=== PATIENT | male | born 1955 | race Caucasian/White ===

== ENCOUNTER 2019-05-12 01:10 | Inpatient (IN) | payer MEDICARE ==
[~2019-05-12] VITALS: Ht 175.3 cm; Wt 88.6 kg
--- NOTE | 2019-05-12 01:31 | NUR ---
EMS REPORT THAT PTS IN IN ROUTE TO OUR ER.
--- NOTE | 2019-05-12 02:39 | NUR ---
PT EVALUATED BY TELE NEURO MD. KACI GONSALVES ASSISTED WITH ASSESSMENT AND REPORT
[2019-05-12] MEDS ORDERED: METO100T14 PO (03:10)
[2019-05-12] MEDS ORDERED: WARF-55 PO (03:10)
[2019-05-12] MEDS ORDERED: potassium Cl 20 mEq SR tablet PO PRN ×2 (03:15)
[2019-05-12] MEDS ORDERED: magnesium 4gm in 100ml NS 100 ML IV PRN (03:15)
[2019-05-12] MEDS ORDERED: magnesium Cl slow-release 64mg tablet PO PRN (03:15)
[2019-05-12] MEDS ORDERED: magnesium hydroxide 30ml (MOM) UD suspension PO PRN (03:15)
[2019-05-12] MEDS ORDERED: HYDROcodone/acetaminophen 5mg/325mg tablet PO PRN (03:15)
[2019-05-12] MEDS ORDERED: ondansetron/PF 4mg/2ml inj IV PRN (03:15)
[2019-05-12] MEDS ORDERED: magnesium 2GM in 50ml NS 50 ML IV PRN (03:15)
[2019-05-12] MEDS ORDERED: acetaminophen 325mg tablet PO PRN (03:15)
[2019-05-12] MEDS ORDERED: morphine 2 MG/ML inj. syringe IV PRN ×2 (03:15)
[2019-05-12] MEDS ORDERED: potassium CL 10mEq/100ml bag 100 ML IV PRN ×2 (03:15)
[2019-05-12] MEDS ORDERED: mag hydrox/Alum hydrox/simeth 30ml oral suspension PO PRN (03:15)
[2019-05-12] MEDS ORDERED: thiamine inj. 100 MG in normal saline 100ml IV soln 100 ML IV ONE (04:35)
[2019-05-12] MEDS ORDERED: LORazepam 2 mg/ml vial IV PRN (04:35)
[2019-05-12] MEDS ORDERED: MVI, adult No.4 with vit. K 10 ML in dextrose 5% water 500ml 500 ML IV ONE ×2 (05:25)
[2019-05-12] MEDS ORDERED: thiamine inj. 100 MG, folic acid inj. 2 MG in normal saline 100ml IV soln 100 ML IV ONE (05:30)
[2019-05-12 06:16] LABS: BASOPHILS % (AUTO) 0.3 % (0-1); EOSINOPHILS % (AUTO) 0.3 % (0-6); HEMOGLOBIN 16.2 g/dl (14.0-17.9); LYMPHOCYTES # (AUTO) 1.7 X10'3 (1.1-4.8); LYMPHOCYTES % (AUTO) 15.7 % (21-51); MEAN CORPUSCULAR HGB CONC 33.8 g/dL (33.0-36.5); MEAN CORPUSCULAR VOLUME 91.5 FL (78-98); MEAN PLATELET VOLUME 8.9 FL (7.4-10.4); MONOCYTES % (AUTO) 9.5 % (2-12); NEUTROPHILS # (AUTO) 8.1 X10'3 (1.8-7.7); NEUTROPHILS % (AUTO) 74.2 % (42-75); PLATELET COUNT 158 X10'3 (140-440); RED BLOOD COUNT 5.24 X10'6 (4.70-6.10); RED CELL DISTRIBUTION WIDTH 13.3 % (11.5-14.5)
[2019-05-12 06:28] LABS: ALBUMIN 3.8 G/DL (3.4-5.0); ANION GAP 11 (8-16); BLOOD UREA NITROGEN 14 MG/DL (7-18); BUN/CREATININE RATIO 10.8 (5.4-32.0); CALCIUM 8.8 MG/DL (8.5-10.1); CHLORIDE 109 MMOL/L (99-107); GLUCOSE 96 MG/DL (70-104); POTASSIUM 3.7 MMOL/L (3.5-5.1); SODIUM 145 MMOL/L (135-145); TOTAL CARBON DIOXIDE 24.6 MMOL/L (24-32); eGFR 55 ML/MIN
[2019-05-12] MEDS: K and/or MAG REPLACEMENT MC SCH (07:27)
[2019-05-12] MEDS: enoxaparin 40mg/0.4ml syringe SQ SCH (07:43)
[2019-05-12] MEDS: folic acid 1mg tablet PO SCH (07:44)
[2019-05-12] MEDS: thiamine 100mg tablet PO SCH (07:44)
[2019-05-12] MEDS: metoprolol tartrate 50mg tablet PO SCH (07:45)
[2019-05-12] MEDS: warfarin 5mg tablet PO SCH (07:53)
[2019-05-12] MEDS: levetiracetam 250mg tablet PO SCH ×2 (08:09→20:36)
[2019-05-12 09:10] LABS: HIV ANTIBODY 1&2 RAPID NON-REACTIVE (Neg)
[2019-05-12 10:00] VITALS: BP 159/90
[2019-05-12] MEDS: LORazepam 1 MG tablet PO PRN ×2 (12:10→20:36)
--- NOTE | 2019-05-12 16:04 | NUR ---
Page to Dr. Up regarding positive MRI and family wanting to see her.
[2019-05-12 18:00] VITALS: BP 133/91
--- NOTE | 2019-05-12 18:30 | NUR ---
Patient in room [facility]TH[facility] 4012. I have received report from BRINA Diaz and had the opportunity to ask questions and assume patient care.
[2019-05-13] VITALS (7 sets, daily range): BP systolic 130–169; BP diastolic 76–95
--- NOTE | 2019-05-13 06:15 | NUR ---
Problems reprioritized. Patient report given, questions answered & plan of care reviewed with BRINA Diaz and BRINA Oconnell student.
[2019-05-13 07:04] LABS: RPR Non Reactive (Non Reactive)
[2019-05-13 07:18] LABS: BASOPHILS % (AUTO) 0.5 % (0-1); EOSINOPHILS # (AUTO) 0.1 X10'3 (0-0.9); EOSINOPHILS % (AUTO) 1.5 % (0-6); HEMATOCRIT 45.6 % (42.0-52.0); HEMOGLOBIN 15.3 g/dl (14.0-17.9); LYMPHOCYTES # (AUTO) 1.4 X10'3 (1.1-4.8); LYMPHOCYTES % (AUTO) 22.6 % (21-51); MEAN CORPUSCULAR HEMOGLOBIN 31.2 PG (27.0-31.0); MEAN CORPUSCULAR HGB CONC 33.6 g/dL (33.0-36.5); MEAN CORPUSCULAR VOLUME 92.6 FL (78-98); MEAN PLATELET VOLUME 9.1 FL (7.4-10.4); MONOCYTES # (AUTO) 0.7 X10'3 (0-0.9); MONOCYTES % (AUTO) 11.3 % (2-12); NEUTROPHILS # (AUTO) 4.1 X10'3 (1.8-7.7); NEUTROPHILS % (AUTO) 64.1 % (42-75); PLATELET COUNT 150 X10'3 (140-440); RED BLOOD COUNT 4.93 X10'6 (4.70-6.10); RED CELL DISTRIBUTION WIDTH 13.5 % (11.5-14.5); WHITE BLOOD COUNT 6.4 X10'3 (4.5-11.0)
[2019-05-13 07:34] LABS: ALBUMIN 3.3 G/DL (3.4-5.0); ANION GAP 9 (8-16); BLOOD UREA NITROGEN 14 MG/DL (7-18); BUN/CREATININE RATIO 11.3 (5.4-32.0); CALCIUM 8.6 MG/DL (8.5-10.1); CHLORIDE 108 MMOL/L (99-107); CREATININE 1.24 MG/DL (0.60-1.10); GLUCOSE 86 MG/DL (70-104); MAGNESIUM 1.8 MG/DL (1.5-2.4); SODIUM 143 MMOL/L (135-145); TOTAL CARBON DIOXIDE 26.1 MMOL/L (24-32); eGFR 59 ML/MIN
[2019-05-13] MEDS: levetiracetam 250mg tablet PO SCH ×2 (07:58→21:47)
[2019-05-13] MEDS: folic acid 1mg tablet PO SCH (07:58)
[2019-05-13] MEDS: enoxaparin 40mg/0.4ml syringe SQ SCH (07:58)
[2019-05-13] MEDS: metoprolol tartrate 50mg tablet PO SCH (07:59)
[2019-05-13] MEDS: warfarin 5mg tablet PO SCH (07:59)
[2019-05-13] MEDS: thiamine 100mg tablet PO SCH (08:00)
[2019-05-13] MEDS: K and/or MAG REPLACEMENT MC SCH (08:08)
[2019-05-13 11:33] LABS: CHOL/HDL RATIO 3.2 (0.00-4.99); CHOLESTEROL 130 MG/DL (0-200); HDL CHOLESTEROL 41 MG/DL (35-60); LDL CHOLESTEROL 76 MG/DL (50-100); TRIGLYCERIDES 99 MG/DL (20-135)
--- NOTE | 2019-05-13 15:44 | NUR ---
Radiologist Dr. Khan called again regarding patient MRA of the head and Neck, no findings in the neck.
--- NOTE | 2019-05-13 17:05 | NUR ---
Student documentation: I have reviewed and agree with all interventions, assessments performed and documented by Dalton NS. Student Medication Administration: For this medication-pass time frame, all medication were reviewed, dispensed, administered and documented per hospital policy by Dalton NS.
--- NOTE | 2019-05-13 18:10 | NUR ---
Pt report given to Mabel GONSALVES
--- NOTE | 2019-05-13 18:15 | NUR ---
Patient in room [facility]TH[facility] 4010. I have received report from BRINA Diaz and Ramesh Hoffman and had the opportunity to ask questions and assume patient care.
--- NOTE | 2019-05-13 18:18 | NUR ---
Report to Mabel GONSALVES
[2019-05-13] MEDS: LORazepam 1 MG tablet PO PRN ×2 (18:48→21:47)
[2019-05-14] VITALS: BP 150/105
[2019-05-14 02:00] VITALS: BP 120/75
[2019-05-14 04:00] VITALS: BP 119/80
[2019-05-14 06:00] VITALS: BP_SYST 119; BP_SYST 130; BP_DIAS 77; BP_DIAS 80
[2019-05-14 06:24] LABS: ALBUMIN 3.3 G/DL (3.4-5.0); ANION GAP 8 (8-16); BLOOD UREA NITROGEN 17 MG/DL (7-18); BUN/CREATININE RATIO 13.8 (5.4-32.0); CALCIUM 8.6 MG/DL (8.5-10.1); CHLORIDE 109 MMOL/L (99-107); CREATININE 1.23 MG/DL (0.60-1.10); GLUCOSE 94 MG/DL (70-104); MAGNESIUM 1.8 MG/DL (1.5-2.4); POTASSIUM 4.1 MMOL/L (3.5-5.1); SODIUM 144 MMOL/L (135-145); TOTAL CARBON DIOXIDE 27.2 MMOL/L (24-32); eGFR 59 ML/MIN
--- NOTE | 2019-05-14 06:36 | NUR ---
Patient in room [facility]TH[facility] 4012. I have received report from Mabel GONSALVES and had the opportunity to ask questions and assume patient care.
--- NOTE | 2019-05-14 06:36 | NUR ---
Problems reprioritized. Patient report given, questions answered & plan of care reviewed with BRINA Shelby.
[2019-05-14 06:38] LABS: BASOPHILS % (AUTO) 0.5 % (0-1); EOSINOPHILS # (AUTO) 0.1 X10'3 (0-0.9); HEMATOCRIT 45.6 % (42.0-52.0); HEMOGLOBIN 15.5 g/dl (14.0-17.9); LYMPHOCYTES # (AUTO) 1.8 X10'3 (1.1-4.8); LYMPHOCYTES % (AUTO) 26.9 % (21-51); MEAN CORPUSCULAR HEMOGLOBIN 30.9 PG (27.0-31.0); MEAN CORPUSCULAR HGB CONC 33.9 g/dL (33.0-36.5); MEAN CORPUSCULAR VOLUME 91.1 FL (78-98); MEAN PLATELET VOLUME 8.7 FL (7.4-10.4); MONOCYTES # (AUTO) 0.8 X10'3 (0-0.9); MONOCYTES % (AUTO) 12.8 % (2-12); NEUTROPHILS # (AUTO) 3.8 X10'3 (1.8-7.7); NEUTROPHILS % (AUTO) 57.8 % (42-75); PLATELET COUNT 154 X10'3 (140-440); RED BLOOD COUNT 5.01 X10'6 (4.70-6.10); RED CELL DISTRIBUTION WIDTH 13.3 % (11.5-14.5); WHITE BLOOD COUNT 6.6 X10'3 (4.5-11.0)
[2019-05-14] MEDS: levetiracetam 250mg tablet PO SCH (07:58)
[2019-05-14] MEDS: thiamine 100mg tablet PO SCH (07:58)
[2019-05-14] MEDS: folic acid 1mg tablet PO SCH (07:58)
[2019-05-14] MEDS: metoprolol tartrate 50mg tablet PO SCH (07:59)
[2019-05-14] MEDS: K and/or MAG REPLACEMENT MC SCH (08:32)
[2019-05-14 10:00] VITALS: BP 142/90
--- NOTE | 2019-05-14 13:35 | NUR ---
[id number] Re: Jay Jennings. Pt needs a Statin ordered to meet core measures and is getting very anxious to leave.
[2019-05-14 14:07] VITALS: BP 118/85
[2019-05-14] MEDS ORDERED: atorvastatin 20mg tablet PO SCH (15:15)
[2019-05-14] MEDS ORDERED: APIX5TAB3 PO (17:14)
[2019-05-14] MEDS ORDERED: ASPI81TA30 PO (17:14)
[2019-05-14] MEDS ORDERED: ATOR20TA66 PO (17:14)
--- NOTE | 2019-05-14 17:53 | NUR ---
Safe DC with family. all personal items with patient.
[2019-05-14] MEDS ORDERED: apixaban 5mg tablet PO SCH (20:00)
== END 2019-05-14 17:50 | disposition home or self-care (01) | DRG 65 ==
LOC: ER 01:12 → ED HOLD 04:12 → EDBEDREQ 05:31 → CMPBEDREQ 06:09 → ORTHO 4S 06:09
PROVIDERS: ADMIT Hospitalist; ATTEND Internal Medicine
PROC: 4A10X4Z Monitoring of Central Nervous Electrical Activity, External Approach (ICD-10-PCS; principal; 2019-05-12)
DX: I63.9 Cerebral infarction, unspecified (principal); N17.9 Acute kidney failure, unspecified; G40.909 Epilepsy, unspecified, not intractable, without status epilepticus; I10 Essential (primary) hypertension; G47.30 Sleep apnea, unspecified; I48.91 Unspecified atrial fibrillation; Z79.899 Other long term (current) drug therapy
CPT/HCPCS: 36415; 70544; 70547; 70551; 80048; 80061; 82140; 82948; 83735; 84443; 85025; 85610; 86592; 86703; 87081; 93005; 95816; 97110; 97116; 97162; 97530; 99285; G0378; J1650; J3411; J3490; J7060